=== PATIENT | male | born 1975 | race Caucasian/White ===

== ENCOUNTER → 2021-01-17 | Outpatient (CLI) | payer OTHER ==
--- NOTE | 2021-01-17 16:33 | REP ---
INDICATION: OTH SPONDYLOSIS T AND LS SPINE. 45-year-old longstanding low back pain since 2004 with spondylosis at multiple levels. Continued symptoms. COMPARISON: No comparison spine imaging available. TECHNIQUE: Sagittal and axial T1 and T2-weighted scans are acquired in the usual fashion with and without fat saturation. Sequences include spin echo, turbo spin-echo, and STIR imaging sequences. FINDINGS: There is straightening of the normal lumbar lordosis. Lumbar vertebral body heights are preserved. Alignment is normal. There is no evidence of spondylolysis or spondylolisthesis. Normal caliber aorta. No extra vertebral abnormality. There is diffuse degenerative disc space narrowing and signal intensity loss on T2 weighted scans throughout the lumbar spine consistent with diffuse degenerative disc disease. This is most pronounced at L3-4. Axial and sagittal images at the L1-2 disc level show no evidence of disc protrusion, central canal stenosis, or foraminal narrowing. At L2-3, there is minimal diffuse central disc bulging effacing the ventral subarachnoid space. No spinal stenosis is seen. No foraminal narrowing is appreciated. At L3-4, there is diffuse disc bulging. This combined with developmentally short pedicles produces mild central canal stenosis. Ligamentum flavum and mild facet hypertrophy contribute to this. The thecal sac has a triangular configuration and a maximum AP dimension in the midline of 10 mm. No neural foraminal narrowing is seen. At L4-L5, there is a broad-based left posterior and left foraminal disc bulge. This produces mild bilateral neural foraminal narrowing and the disc bulge effaces the ventral margin of the thecal sac, particularly on the left. There is mild to moderate central canal stenosis at L4-5 due to this in combination with ligamentum flavum hypertrophy, facet hypertrophy, and developmentally short pedicles. The midline AP dimension of the thecal sac at L4-5 is 8.9 mm. There is minimal facet joint fluid at L4-5 right more so than left. At L5-S1, there is mild facet hypertrophy. No focal disc protrusion is seen. Minimal central disc bulging is present. No neural foraminal encroachment. IMPRESSION: Multilevel degenerative disc disease. Developmentally borderline canal size with mild to moderate central canal stenosis noted at L4-5 and L3-4. Left posterior and left foraminal disc bulge at L4-5. Facet and ligamentum flavum hypertrophy noted at L4-5 L5-S1 and to some degree, at L3-4. <Electronically signed by Fortino Vidales > 01/17/21 [id number]
--- NOTE | 2021-01-17 16:37 | REP ---
INDICATION: OTH SPONDYLOSIS T AND LS SPINE. Chronic low back pain since 2004 with spondylosis at multiple levels. COMPARISON: No available prior thoracic spine imaging. TECHNIQUE: Sagittal and axial T1 and T2-weighted scans are acquired in the usual fashion with and without fat saturation. Sequences include spin echo, turbo spin-echo, and STIR imaging sequences. FINDINGS: Thoracic vertebral body heights are preserved. Cortical and medullary bone signal intensity are normal. There is a tiny Katie in the right-side inferior aspect posteriorly at T10. No bony destructive lesion is seen. No neural foraminal narrowing is observed. The thoracic cord is normal in course, caliber, and signal intensity on T1 and T2 weighted scans. No cord compressive lesion is seen. The visualized extra-spinal soft and posterior chest wall soft tissues are unremarkable. No thoracic disc protrusion is seen. There is minimal anterior discogenic spurring at the T11-12 level. IMPRESSION: No thoracic disc protrusion, central canal stenosis, neural foraminal narrowing, or cord compressive lesion seen. <Electronically signed by Fortino Vidales > 01/17/21 [id number]
== END ==
LOC: M RAD 14:48
PROVIDERS: ATTEND Physician Assistant
DX: M54.5 Low back pain (principal)

== ENCOUNTER → 2022-02-23 | Outpatient (CLI) | payer OTHER | LOC: M PLAIMG 11:28 | PROVIDERS: ATTEND Technician, Other | DX: M25.561 Pain in right knee (principal) ==